=== PATIENT | female | born 2000 | race Caucasian/White ===

== ENCOUNTER 2021-08-15 21:01 | Emergency (ER) | payer OTHER, SELFPAY ==
--- NOTE | 2021-08-15 21:03 | PC.NURSE ---
patient and mother state they will go to [place] because it is closer to home.
== END 2021-08-15 21:05 | disposition home or self-care (01) ==
LOC: ANHED 21:07
PROVIDERS: PCP Emergency Medicine
DX: Z53.21 Procedure and treatment not carried out due to patient leaving prior to being seen by health care provider (principal)
CPT/HCPCS: 99199